=== PATIENT | male | born 1945 | race Caucasian/White ===

== ENCOUNTER → 2018-07-17 | Outpatient (CLI) | payer MEDICARE, OTHER | END | disposition home or self-care (01) | LOC: CVU 10:01 | PROVIDERS: ATTEND Physician Assistant Medical | DX: I70.213 Atherosclerosis of native arteries of extremities with intermittent claudication, bilateral legs (principal); I48.91 Unspecified atrial fibrillation; E78.5 Hyperlipidemia, unspecified; I10 Essential (primary) hypertension; Z86.73 Personal history of transient ischemic attack (TIA), and cerebral infarction without residual deficits | CPT/HCPCS: 93922 ==

== ENCOUNTER → 2018-09-18 | Outpatient (CLI) | payer MEDICARE, OTHER ==
[~2018-09-18] MED LIST: REGADENOSON 0.4 MG/5 ML SYRINGE ONE
== END | disposition home or self-care (01) ==
LOC: CFH 07:34
PROVIDERS: ATTEND Nurse Practitioner Family
DX: I48.2 Chronic atrial fibrillation (principal)
CPT/HCPCS: 78452; 93017; A9502; J2785

== ENCOUNTER → 2019-03-20 | Outpatient (CLI) | payer MEDICARE, OTHER | END | disposition home or self-care (01) | LOC: CVU 09:40 | PROVIDERS: ATTEND Internal Medicine Cardiovascular Disease | DX: I08.1 Rheumatic disorders of both mitral and tricuspid valves (principal); I65.23 Occlusion and stenosis of bilateral carotid arteries; E78.2 Mixed hyperlipidemia | CPT/HCPCS: 93306; 93880 ==

== ENCOUNTER → 2021-03-19 | Outpatient (CLI) | payer MEDICARE, OTHER | END | disposition home or self-care (01) | LOC: COVVAC 11:59 | PROVIDERS: ATTEND Internal Medicine | DX: Z20.822 Contact with and (suspected) exposure to COVID-19 (principal) | CPT/HCPCS: U0003 ==

== ENCOUNTER 2021-03-24 05:59 | Observation (INO) | payer MEDICARE, OTHER ==
[~2021-03-24] VITALS: Ht 180.3 cm; Wt 104.5 kg
[2021-03-24] MEDS ORDERED: LEVO150T PO (06:25)
[2021-03-24] MEDS ORDERED: ROPI0.5T4 PO (06:25)
[2021-03-24] MEDS ORDERED: MULT-717 PO (06:25)
[2021-03-24] MEDS ORDERED: PRAV40TA2 PO (06:25)
[2021-03-24] MEDS ORDERED: CALC1TAB PO (06:25)
[2021-03-24] MEDS ORDERED: TOPI25CA5 PO (06:25)
[2021-03-24] MEDS ORDERED: AMIO100T4 PO (06:25)
[2021-03-24] MEDS ORDERED: PROP80TA PO (06:25)
[2021-03-24] MEDS ORDERED: ASPI81TA45 PO (06:25)
[2021-03-24] MEDS ORDERED: SODIUM CHLORIDE 0.9% 1,000 ML IV SCH (06:30)
[2021-03-24 06:35] VITALS: BP 143/93
[2021-03-24 07:06] LABS: BASOPHILS % (AUTO) 2 % (0-1); EOSINOPHILS % (AUTO) 2 % (1-7); LYMPHOCYTES % (AUTO) 27 % (22-44); MEAN PLATELET VOLUME 7.5 fL (7.4-10.4); MONOCYTES % (AUTO) 10 % (2-9); NEUTROPHILS % (AUTO) 59 % (42-75); PLATELET COUNT 194 x10^3/uL (130-400); RED BLOOD COUNT 4.36 x10^6/uL (4.38-5.82); RED CELL DISTRIBUTION WIDTH 13.6 % (9.4-14.8)
[2021-03-24 07:11] LABS: MD NO
[2021-03-24] MEDS ORDERED: LIDOCAINE 2%, 20ML ONE (07:19)
[2021-03-24 07:22] LABS: ANION GAP 5 mmol/L (5-15); CALCIUM 9.4 mg/dL (8.5-10.1); CHLORIDE 111 mmol/L (98-107)
[2021-03-24 07:23] LABS: CREATININE 1.22 mg/dL (0.7-1.3)
[2021-03-24] MEDS ORDERED: FENTANYL PF 100 MCG/2ML ONE (07:47)
[2021-03-24] MEDS ORDERED: hydrALAzine 20 MG/ML, 1ML IV PRN (08:00)
[2021-03-24] MEDS ORDERED: OXYcodone 5 MG/5 ML ORAL.SOL UDC PO PRN (08:00)
[2021-03-24] MEDS ORDERED: ACETAMINOPHEN 325 MG TABLET PO PRN (08:00)
[2021-03-24] MEDS ORDERED: FENTANYL PF 100 MCG/2ML IV PRN (08:00)
[2021-03-24] MEDS ORDERED: LABETALOL 5MG/ML, 20ML IV PRN (08:00)
[2021-03-24] MEDS ORDERED: ONDANSETRON 2MG/ML, 2ML IVPush PRN (08:00)
[2021-03-24] MEDS ORDERED: PROMETHAZINE 25 MG/ML, 1ML IVPush PRN (08:00)
[2021-03-24] MEDS ORDERED: EPHEDRINE 50 MG/ML, 1ML IVPush PRN (08:00)
[2021-03-24] MEDS ORDERED: HYDROmorphone 1 MG/ML, 1ML INJ IVPush PRN (08:00)
[2021-03-24] MEDS ORDERED: PHENYLEPHRINE 10 MG/ML ONE (08:31)
[2021-03-24] MEDS ORDERED: ROCURONIUM 10MG/ML,5ML ONE (08:51)
[2021-03-24] MEDS ORDERED: NEOSTIGMINE 1 MG/ML, 10ML ONE (08:51)
[2021-03-24] MEDS ORDERED: SUCCINYLCHOLINE 20 MG/ML, 10ML ONE (08:51)
[2021-03-24] MEDS ORDERED: DEXAMETHASONE 4 MG/ML, 1ML ONE (08:51)
[2021-03-24] MEDS ORDERED: GLYCOPYRROLATE 0.2MG/1ML, 5ML ONE (08:51)
[2021-03-24] MEDS ORDERED: HEPARIN 1,000 UNITS/ML, 10ML ONE ×2 (08:51)
[2021-03-24] MEDS ORDERED: ONDANSETRON 2MG/ML, 2ML ONE (08:51)
[2021-03-24] MEDS ORDERED: PROPOFOL 10 MG/ML, 20ML ONE (08:51)
[2021-03-24] MEDS ORDERED: APIXABAN 5 MG TABLET ONE (10:56)
[2021-03-24] MEDS: APIXABAN 5 MG TABLET PO SCH ×2 (11:02→20:27)
[2021-03-24 12:32] VITALS: BP 132/82
[2021-03-24] MEDS: ROPINIROLE 0.5MG TABLET PO SCH ×2 (17:11→20:26)
[2021-03-24 18:45] VITALS: BP 155/92
[2021-03-24] MEDS: PROPRANOLOL 40 MG TABLET PO SCH (20:27)
[2021-03-24] MEDS ORDERED: PRAVASTATIN 40 MG TABLET PO SCH (21:00)
[2021-03-25 01:25] VITALS: BP 144/88
[2021-03-25] MEDS ORDERED: LEVOTHYROXINE 150 MCG TABLET PO SCH (06:00)
[2021-03-25 06:46] VITALS: BP 134/81
[2021-03-25] MEDS: ROPINIROLE 0.5MG TABLET PO SCH (08:41)
[2021-03-25] MEDS: APIXABAN 5 MG TABLET PO SCH (08:42)
[2021-03-25] MEDS: PROPRANOLOL 40 MG TABLET PO SCH (08:42)
[2021-03-25] MEDS ORDERED: TOPIRAMATE 25 MG TABLET PO SCH (09:00)
[2021-03-25] MEDS ORDERED: ASPIRIN 81 MG TABLET EC PO SCH (09:00)
[2021-03-25] MEDS ORDERED: MULTIVITAMINS/MINERALS TABLET PO SCH (09:00)
[2021-03-25] MEDS ORDERED: CALCIUM/VITAMIN D3 250-125 TABLET PO SCH (09:00)
[2021-03-25] MEDS ORDERED: APIX5TAB PO ×2 (09:58→10:04)
== END 2021-03-25 11:11 | disposition home or self-care (01) ==
LOC: CACL 05:59 → ORIP 10:12 → 5SO 11:38 → CACL 13:29 → 5SO 15:45 → DCLOUNGE 03-25 11:03
PROVIDERS: ADMIT Internal Medicine Cardiovascular Disease; ATTEND Internal Medicine Cardiovascular Disease
DX: I48.91 Unspecified atrial fibrillation (principal); I48.92 Unspecified atrial flutter; I10 Essential (primary) hypertension; Z95.0 Presence of cardiac pacemaker; Z79.899 Other long term (current) drug therapy
CPT/HCPCS: 36415; 71046; 80048; 85025; 85347; 93306; 93613; 93655; 93656; 93657; 93662; C1730; C1732; C1759; C1766; C1893; C1894; G0378; J0330; J1100; J1644; J2370; J2405; J2704; J2710; J3010; J3490

== ENCOUNTER → 2021-04-08 | Outpatient (CLI) | payer MEDICARE, OTHER ==
[~2021-04-08] MED LIST changes: +AMIO100T4 PO; +APIX5TAB PO; +ASPI81TA45 PO; +CALC1TAB PO; +LEVO150T PO; +MULT-717 PO; +PRAV40TA2 PO; +PROP80TA PO; -REGADENOSON 0.4 MG/5 ML SYRINGE ONE; +ROPI0.5T4 PO; +TOPI25CA5 PO
== END | disposition home or self-care (01) ==
LOC: RAD 12:38
PROVIDERS: ATTEND Nurse Practitioner Family
DX: I82.409 Acute embolism and thrombosis of unspecified deep veins of unspecified lower extremity (principal); R60.9 Edema, unspecified; M79.604 Pain in right leg